=== PATIENT | female | born 1980 | race Two or more races ===

== ENCOUNTER 2025-01-23 13:34 | Outpatient (CLI) | payer OTHER | END 2025-01-23 13:38 | disposition home or self-care (01) | LOC: SONOGRAMA 13:34 | PROVIDERS: ATTEND Pathology Anatomic Pathology | DX: C08.0 Malignant neoplasm of submandibular gland (principal); D37.030 Neoplasm of uncertain behavior of the parotid salivary glands; D21.0 Benign neoplasm of connective and other soft tissue of head, face and neck; R59.0 Localized enlarged lymph nodes ==